=== PATIENT | male | born 1990 | race Caucasian/White ===

== ENCOUNTER 2017-02-23 15:40 | Inpatient (IN) | payer BC ==
[2017-02-23 16:00] VITALS: BP 127/71
[2017-02-23 16:23] LABS: HEMATOCRIT 49.4 % (39.0-49.0); HEMOGLOBIN 16.4 gm/dL (13.2-17.3); MEAN CELL VOLUME 87.7 fl (80-99); MEAN CORPUSCULAR HEMOGLOBIN 29.1 pg (26.0-30.0); MEAN CORPUSCULAR HGB CONC 33.1 pg (28.0-36.0); MEAN PLATELET VOLUME 9.1 fl; PLATELET COUNT 375 Th/cmm (150-400); RED BLOOD COUNT 5.63 Mil/cmm (4.30-5.70); RED CELL DISTRIBUTION WIDTH 12.5 % (11.5-20.0)
[2017-02-23 16:46] LABS: ALB/GLOB RATIO 1.2 (1.0-1.8); ANION GAP 14.2 (7.0-16.0); BILIRUBIN,TOTAL 0.8 mg/dL (0.3-1.0); BUN/CREATININE RATIO 19.4; CALCIUM SERUM 9.8 mg/dL (8.6-10.3); CARBON DIOXIDE 21.7 mEq/L (21.0-31.0); CREATININE - SERUM 1.8 mg/dL (0.7-1.3); POTASSIUM SERUM 4.9 mEq/L (3.5-5.1)
[2017-02-23] MEDS: Sodium Chloride 0.9% 1,000 ML IV SCH (16:50)
[2017-02-23] MEDS ORDERED: VTE Chemical Prophylaxis Screen/Admission MC PRN (17:14)
[2017-02-23 17:16] LABS: BAND NEUTROPHILE 10 % (0-10); BASOPHIL 0 % (0-3); EOSINOPHIL 0 % (0-5); NEUTROPHILS 80 % (40-80); PLATELET ESTIMATE ADEQUATE (NORMAL); PLATELET MORPHOLOGY NORMAL (NORMAL); TOTAL CELLS COUNTED 100
[2017-02-23 17:32] LABS: AMYLASE SERUM 174 U/L (29-103); LIPASE 192 U/L (11-82)
[2017-02-23 19:14] LABS: URINE BILIRUBIN SMALL (NEGATIVE); URINE BLOOD SMALL (NEGATIVE); URINE GLUCOSE (UA) >=1000 mg/dL (NEGATIVE); URINE KETONE 40 mg/dL (NEGATIVE); URINE PH 5.5 (4.6 - 8.0); URINE PROTEIN TRACE mg/dL (NEGATIVE); URINE UROBILINOGEN 0.2 E.U./dL (0.2 - 1.0)
[2017-02-23 19:28] LABS: URINE BACTERIA NONE SEEN /hpf (NONE SEEN); URINE COLOR YELLOW; URINE EPITHELIAL CELLS NONE SEEN /lpf (FEW); URINE WBC NONE SEEN /hpf (0-5)
[2017-02-23] MEDS ORDERED: Potassium Chloride 40 MEQ, Lidocaine 1% 20mL Vial 25 MG in Sodium Chloride 0.9% 250 ML IV PRN (20:15)
[2017-02-24] MEDS: Sodium Chloride 0.9% 1,000 ML IV SCH ×3 (01:00→17:52)
--- NOTE | 2017-02-24 07:59 | Diagnostic Imaging Report ---
CHEST X-RAY: AP view INDICATION: Sepsis COMPARISON: None FINDINGS: There is no focal consolidation or pleural effusions The heart is normal in size. The osseous structures demonstrate no acute abnormalities. IMPRESSION: No acute cardiopulmonary disease.
[2017-02-24 08:06] LABS: MEAN CELL VOLUME 87.1 fl (80-99); MEAN CORPUSCULAR HEMOGLOBIN 29.6 pg (26.0-30.0); MEAN PLATELET VOLUME 8.7 fl; RED BLOOD COUNT 4.74 Mil/cmm (4.30-5.70); RED CELL DISTRIBUTION WIDTH 12.6 % (11.5-20.0)
[2017-02-24 08:27] LABS: ALB/GLOB RATIO 1.2 (1.0-1.8); ALKALINE PHOSPHATASE 106 U/L (34-104); ANION GAP 10.8 (7.0-16.0); BILIRUBIN,TOTAL 0.9 mg/dL (0.3-1.0); BUN - UREA NITROGEN 21 mg/dL (7-25); CALCIUM SERUM 9.1 mg/dL (8.6-10.3); CARBON DIOXIDE 22.2 mEq/L (21.0-31.0); CHLORIDE 109 mEq/L (98-107); GLUCOSE 232 mg/dL (70-105); SGOT 45 U/L (13-39); SGPT/ALT 20 U/L (7-52); SODIUM SERUM 138 mEq/L (136-145)
[2017-02-24 08:46] LABS: HEMATOCRIT 41.3 % (39.0-49.0); PLATELET COUNT 274 Th/cmm (150-400); WHITE BLOOD COUNT 25.4 Th/cmm (4.8-10.8)
[2017-02-24 08:55] LABS: BAND NEUTROPHILE 3 % (0-10); NEUTROPHILS 89 % (40-80); TOTAL CELLS COUNTED 100
--- NOTE | 2017-02-24 10:01 | History and Physical ---
History of Present Illness - HPI Chief Complaint: Nausea and vomit HPI: Patient refer that he started with nausera and vomit many times, reazon why he went to [facility]. In ER was found patient was in DKA and had pancreatitis. Patient was transfered to this hospital to continue treatment. 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 Pertinent Hx GI: Report: No Pertinent Hx Psych: Report: No Pertinent Hx Musculoskeletal: Report: No Pertinent Hx Rheumatologic: Report: No pertinent Hx Infectious Disease: Report: No Pertinent Hx Renal/: Report: No Pertinent Hx Endocrine: Report: Diabetes Dermatology: Report: No Pertinent Hx - Past Surgical History Past Surgical History: No pertinent Hx Family Medical History - Family Member Mother Ethnicity: Hx Family Cancer: No Hx Family Coronary Artery Disease: No Hx Family Congestive Heart Failure: No Hx Family Hypertension: Yes Hx Family Stroke: No Hx Family Diabetes: Yes Father Hx Family Hypertension: Yes Hx Family Diabetes: Yes Social History Smoke: No Alcohol: None Drugs: None Lives: With Family Domestic Violence: Negative - Medications Home Medications: Home Medication Medication Instructions Recorded Type Insulin Human Isophane (NPH) 10 units SUBQ Q12HR 02/23/17 History [NovoLIN N] Insulin Human Regular [NovoLIN R*] 10 units SUBQ TIDWM 02/23/17 History - Allergies Allergies/Adverse Reactions: Allergies Allergy/AdvReac Type Severity Reaction Status Date / Time No Known Allergies Allergy Verified 02/23/17 16:01 Review of Systems - Review of Systems Constitutional: Report: Fever, Weakness Eyes: Report: No Significant ENT: Report: No Significant Respiratory: Report: No Significant Cardiovascular: Report: No Significant Gastrointestinal: Report: Nausea, Vomiting, Abdominal Pain Genitourinary: Report: No Significant Musculoskeletal: Report: No Significant Skin: Report: No Significant Neurological: Report: Weakness Physical Exam - Physical Exam HEENT: Report: Ears Nose Throat within normal limits Neck: Report: Within normal limits Cardiovascular Systems: Report: Regular, Rate and Rhythm Respiratory: Report: Breath Sounds are within normal limits Abdomen: Report: Non-tender to palpation Back: Report: Inspection of back is within normal limits. Extremities: Report: Non-tender to palpation. Skin: Report: Color of skin is within normal limits Neuro/Psych: Report: Mood affect is within normal limits - Lab Results All Lab Results last 24 hours: Laboratory Last Values WBC 25.4 Th/cmm (4.8-10.8) H* D 02/24/17 07:55 RBC 4.74 Mil/cmm (4.30-5.70) 02/24/17 07:55 Hgb 14.0 gm/dL (13.2-17.3) D 02/24/17 07:55 Hct 41.3 % (39.0-49.0) D 02/24/17 07:55 MCV 87.1 fl (80-99) 02/24/17 07:55 MCH 29.6 pg (26.0-30.0) 02/24/17 07:55 MCHC Differential 34.0 pg (28.0-36.0) 02/24/17 07:55 RDW 12.6 % (11.5-20.0) 02/24/17 07:55 Plt Count 274 Th/cmm (150-400) D 02/24/17 07:55 MPV 8.7 fl 02/24/17 07:55 Band Neutrophils % 3 % (0-10) 02/24/17 07:55 Neutrophils (Manual) 89 % (40-80) H 02/24/17 07:55 Lymphocytes 5 % (20-50) L 02/24/17 07:55 Monocytes 3 % (2-10) 02/24/17 07:55 Eosinophils 0 % (0-5) 02/23/17 16:16 Basophils 0 % (0-3) 02/23/17 16:16 Platelet Estimate ADEQUATE (NORMAL) 02/23/17 16:16 Platelet Morphology NORMAL (NORMAL) 02/23/17 16:16 RBC Morph Micro Appear NORMAL (NORMAL) 02/23/17 16:16 Sodium 138 mEq/L (136-145) 02/24/17 07:55 Potassium 4.0 mEq/L (3.5-5.1) 02/24/17 07:55 Chloride 109 mEq/L (98-107) H 02/24/17 07:55 Carbon Dioxide 22.2 mEq/L (21.0-31.0) 02/24/17 07:55 Anion Gap 10.8 (7.0-16.0) 02/24/17 07:55 BUN 21 mg/dL (7-25) 02/24/17 07:55 Creatinine 1.0 mg/dL (0.7-1.3) 02/24/17 07:55 Est GFR ( Amer) > 60.0 ml/min (>90) 02/24/17 07:55 Est GFR (Non-Af Amer) > 60.0 ml/min 02/24/17 07:55 BUN/Creatinine Ratio 21.0 02/24/17 07:55 Glucose 232 mg/dL (70-105) H 02/24/17 07:55 POC Glucose 202 MG/DL (70 - 105) H 02/24/17 07:30 Hemoglobin A1c % 13.5 % (4.0-6.0) H 02/23/17 16:16 Whole Bld Lactic Acid 1.80 mmol/L (0.60-1.99) 02/23/17 16:16 Calcium 9.1 mg/dL (8.6-10.3) 02/24/17 07:55 Total Bilirubin 0.9 mg/dL (0.3-1.0) 02/24/17 07:55 AST 45 U/L (13-39) H 02/24/17 07:55 ALT 20 U/L (7-52) 02/24/17 07:55 Alkaline Phosphatase 106 U/L (34-104) H 02/24/17 07:55 Total Protein 6.1 gm/dL (6.0-8.3) 02/24/17 07:55 Albumin 3.3 gm/dL (4.2-5.5) L 02/24/17 07:55 Globulin 2.8 gm/dL 02/24/17 07:55 Albumin/Globulin Ratio 1.2 (1.0-1.8) 02/24/17 07:55 Amylase 174 U/L (29-103) H 02/23/17 16:16 Lipase 192 U/L (11-82) H 02/23/17 16:16 Urine Source RANDOM 02/23/17 18:45 Urine Color YELLOW 02/23/17 18:45 Urine Clarity CLEAR (CLEAR) 02/23/17 18:45 Urine pH 5.5 (4.6 - 8.0) 02/23/17 18:45 Ur Specific [place] >= 1.030 (1.005-1.030) 02/23/17 18:45 Urine Protein TRACE mg/dL (NEGATIVE) 02/23/17 18:45 Urine Glucose (UA) >=1000 mg/dL (NEGATIVE) H 02/23/17 18:45 Urine Ketones 40 mg/dL (NEGATIVE) H 02/23/17 18:45 Urine Blood SMALL (NEGATIVE) H 02/23/17 18:45 Urine Nitrate NEGATIVE (NEGATIVE) 02/23/17 18:45 Urine Bilirubin SMALL (NEGATIVE) H 02/23/17 18:45 Urine Urobilinogen 0.2 E.U./dL (0.2 - 1.0) 02/23/17 18:45 Ur Leukocyte Esterase NEGATIVE (NEGATIVE) 02/23/17 18:45 Urine RBC 2-5 /hpf (0-5) H 02/23/17 18:45 Urine WBC NONE SEEN /hpf (0-5) 02/23/17 18:45 Ur Epithelial Cells NONE SEEN /lpf (FEW) 02/23/17 18:45 Urine Bacteria NONE SEEN /hpf (NONE SEEN) 02/23/17 18:45 Laboratory Results - last 24 hr 02/23/17 02/23/17 02/23/17 16:10 16:16 16:16 WBC 38.0 H* RBC 5.63 Hgb 16.4 Hct 49.4 H MCV 87.7 MCH 29.1 MCHC Differential 33.1 RDW 12.5 Plt Count 375 MPV 9.1 Band Neutrophils % 10 Neutrophils (Manual) 80 Lymphocytes 4 L Monocytes 6 Eosinophils 0 Basophils 0 Platelet Estimate ADEQUATE Platelet Morphology NORMAL RBC Morph Micro Appear NORMAL Sodium 142 Potassium 4.9 Chloride 111 H Carbon Dioxide 21.7 Anion Gap 14.2 BUN 35 H Creatinine 1.8 H Est GFR ( Amer) 58.5 Est GFR (Non-Af Amer) 48.3 BUN/Creatinine Ratio 19.4 Glucose 330 H POC Glucose 307 H Hemoglobin A1c % Whole Bld Lactic Acid Calcium 9.8 Total Bilirubin 0.8 AST 32 ALT 21 Alkaline Phosphatase 137 H Total Protein 7.2 Albumin 3.9 L Globulin 3.3 Albumin/Globulin Ratio 1.2 Amylase Lipase Urine Source Urine Color Urine Clarity Urine pH Ur Specific [place] Urine Protein Urine Glucose (UA) Urine Ketones Urine Blood Urine Nitrate Urine Bilirubin Urine Urobilinogen Ur Leukocyte Esterase Urine RBC Urine WBC Ur Epithelial Cells Urine Bacteria 02/23/17 02/23/17 02/23/17 16:16 16:16 16:16 WBC RBC Hgb Hct MCV MCH MCHC Differential RDW Plt Count MPV Band Neutrophils % Neutrophils (Manual) Lymphocytes Monocytes Eosinophils Basophils Platelet Estimate Platelet Morphology RBC Morph Micro Appear Sodium Potassium Chloride Carbon Dioxide Anion Gap BUN Creatinine Est GFR ( Amer) Est GFR (Non-Af Amer) BUN/Creatinine Ratio Glucose POC Glucose Hemoglobin A1c % 13.5 H Whole Bld Lactic Acid 1.80 Calcium Total Bilirubin AST ALT Alkaline Phosphatase Total Protein Albumin Globulin Albumin/Globulin Ratio Amylase 174 H Lipase 192 H Urine Source Urine Color Urine Clarity Urine pH Ur Specific [place] Urine Protein Urine Glucose (UA) Urine Ketones Urine Blood Urine Nitrate Urine Bilirubin Urine Urobilinogen Ur Leukocyte Esterase Urine RBC Urine WBC Ur Epithelial Cells Urine Bacteria 02/23/17 02/23/17 02/23/17 17:08 18:19 18:45 WBC RBC Hgb Hct MCV MCH MCHC Differential RDW Plt Count MPV Band Neutrophils % Neutrophils (Manual) Lymphocytes Monocytes Eosinophils Basophils Platelet Estimate Platelet Morphology RBC Morph Micro Appear Sodium Potassium Chloride Carbon Dioxide Anion Gap BUN Creatinine Est GFR ( Amer) Est GFR (Non-Af Amer) BUN/Creatinine Ratio Glucose POC Glucose 317 H 342 H Hemoglobin A1c % Whole Bld Lactic Acid Calcium Total Bilirubin AST ALT Alkaline Phosphatase Total Protein Albumin Globulin Albumin/Globulin Ratio Amylase Lipase Urine Source RANDOM Urine Color YELLOW Urine Clarity CLEAR Urine pH 5.5 Ur Specific [place] >= 1.030 Urine Protein TRACE Urine Glucose (UA) >=1000 H Urine Ketones 40 H Urine Blood SMALL H Urine Nitrate NEGATIVE Urine Bilirubin SMALL H Urine Urobilinogen 0.2 Ur Leukocyte Esterase NEGATIVE Urine RBC 2-5 H Urine WBC NONE SEEN Ur Epithelial Cells NONE SEEN Urine Bacteria NONE SEEN 02/23/17 02/23/17 02/23/17 19:18 20:20 20:32 WBC RBC Hgb Hct MCV MCH MCHC Differential RDW Plt Count MPV Band Neutrophils % Neutrophils (Manual) Lymphocytes Monocytes Eosinophils Basophils Platelet Estimate Platelet Morphology RBC Morph Micro Appear Sodium Potassium 4.1 Chloride Carbon Dioxide Anion Gap BUN Creatinine Est GFR ( Amer) Est GFR (Non-Af Amer) BUN/Creatinine Ratio Glucose POC Glucose 342 H 285 H Hemoglobin A1c % Whole Bld Lactic Acid Calcium Total Bilirubin AST ALT Alkaline Phosphatase Total Protein Albumin Globulin Albumin/Globulin Ratio Amylase Lipase Urine Source Urine Color Urine Clarity Urine pH Ur Specific [place] Urine Protein Urine Glucose (UA) Urine Ketones Urine Blood Urine Nitrate Urine Bilirubin Urine Urobilinogen Ur Leukocyte Esterase Urine RBC Urine WBC Ur Epithelial Cells Urine Bacteria 02/23/17 02/23/17 02/23/17 21:26 22:28 23:35 WBC RBC Hgb Hct MCV MCH MCHC Differential RDW Plt Count MPV Band Neutrophils % Neutrophils (Manual) Lymphocytes Monocytes Eosinophils Basophils Platelet Estimate Platelet Morphology RBC Morph Micro Appear Sodium Potassium Chloride Carbon Dioxide Anion Gap BUN Creatinine Est GFR ( Amer) Est GFR (Non-Af Amer) BUN/Creatinine Ratio Glucose POC Glucose 265 H 260 H 243 H Hemoglobin A1c % Whole Bld Lactic Acid Calcium Total Bilirubin AST ALT Alkaline Phosphatase Total Protein Albumin Globulin Albumin/Globulin Ratio Amylase Lipase Urine Source Urine Color Urine Clarity Urine pH Ur Specific [place] Urine Protein Urine Glucose (UA) Urine Ketones Urine Blood Urine Nitrate Urine Bilirubin Urine Urobilinogen Ur Leukocyte Esterase Urine RBC Urine WBC Ur Epithelial Cells Urine Bacteria 02/24/17 02/24/17 02/24/17 00:20 00:25 01:29 WBC RBC Hgb Hct MCV MCH MCHC Differential RDW Plt Count MPV Band Neutrophils % Neutrophils (Manual) Lymphocytes Monocytes Eosinophils Basophils Platelet Estimate Platelet Morphology RBC Morph Micro Appear Sodium Potassium 4.1 Chloride Carbon Dioxide Anion Gap BUN Creatinine Est GFR ( Amer) Est GFR (Non-Af Amer) BUN/Creatinine Ratio Glucose POC Glucose 243 H 235 H Hemoglobin A1c % Whole Bld Lactic Acid Calcium Total Bilirubin AST ALT Alkaline Phosphatase Total Protein Albumin Globulin Albumin/Globulin Ratio Amylase Lipase Urine Source Urine Color Urine Clarity Urine pH Ur Specific [place] Urine Protein Urine Glucose (UA) Urine Ketones Urine Blood Urine Nitrate Urine Bilirubin Urine Urobilinogen Ur Leukocyte Esterase Urine RBC Urine WBC Ur Epithelial Cells Urine Bacteria 02/24/17 02/24/17 02/24/17 02:30 03:32 04:05 WBC RBC Hgb Hct MCV MCH MCHC Differential RDW Plt Count MPV Band Neutrophils % Neutrophils (Manual) Lymphocytes Monocytes Eosinophils Basophils Platelet Estimate Platelet Morphology RBC Morph Micro Appear Sodium Potassium 4.1 Chloride Carbon Dioxide Anion Gap BUN Creatinine Est GFR ( Amer) Est GFR (Non-Af Amer) BUN/Creatinine Ratio Glucose POC Glucose 232 H 208 H Hemoglobin A1c % Whole Bld Lactic Acid Calcium Total Bilirubin AST ALT Alkaline Phosphatase Total Protein Albumin Globulin Albumin/Globulin Ratio Amylase Lipase Urine Source Urine Color Urine Clarity Urine pH Ur Specific [place] Urine Protein Urine Glucose (UA) Urine Ketones Urine Blood Urine Nitrate Urine Bilirubin Urine Urobilinogen Ur Leukocyte Esterase Urine RBC Urine WBC Ur Epithelial Cells Urine Bacteria 02/24/17 02/24/17 02/24/17 04:16 05:28 06:27 WBC RBC Hgb Hct MCV MCH MCHC Differential RDW Plt Count MPV Band Neutrophils % Neutrophils (Manual) Lymphocytes Monocytes Eosinophils Basophils Platelet Estimate Platelet Morphology RBC Morph Micro Appear Sodium Potassium Chloride Carbon Dioxide Anion Gap BUN Creatinine Est GFR ( Amer) Est GFR (Non-Af Amer) BUN/Creatinine Ratio Glucose POC Glucose 227 H 224 H 210 H Hemoglobin A1c % Whole Bld Lactic Acid Calcium Total Bilirubin AST ALT Alkaline Phosphatase Total Protein Albumin Globulin Albumin/Globulin Ratio Amylase Lipase Urine Source Urine Color Urine Clarity Urine pH Ur Specific [place] Urine Protein Urine Glucose (UA) Urine Ketones Urine Blood Urine Nitrate Urine Bilirubin Urine Urobilinogen Ur Leukocyte Esterase Urine RBC Urine WBC Ur Epithelial Cells Urine Bacteria 02/24/17 02/24/17 02/24/17 07:30 07:55 07:55 WBC 25.4 H* D RBC 4.74 Hgb 14.0 D Hct 41.3 D MCV 87.1 MCH 29.6 MCHC Differential 34.0 RDW 12.6 Plt Count 274 D MPV 8.7 Band Neutrophils % 3 Neutrophils (Manual) 89 H Lymphocytes 5 L Monocytes 3 Eosinophils Basophils Platelet Estimate Platelet Morphology RBC Morph Micro Appear Sodium 138 Potassium 4.0 Chloride 109 H Carbon Dioxide 22.2 Anion Gap 10.8 BUN 21 Creatinine 1.0 Est GFR ( Amer) > 60.0 Est GFR (Non-Af Amer) > 60.0 BUN/Creatinine Ratio 21.0 Glucose 232 H POC Glucose 202 H Hemoglobin A1c % Whole Bld Lactic Acid Calcium 9.1 Total Bilirubin 0.9 AST 45 H ALT 20 Alkaline Phosphatase 106 H Total Protein 6.1 Albumin 3.3 L Globulin 2.8 Albumin/Globulin Ratio 1.2 Amylase Lipase Urine Source Urine Color Urine Clarity Urine pH Ur Specific [place] Urine Protein Urine Glucose (UA) Urine Ketones Urine Blood Urine Nitrate Urine Bilirubin Urine Urobilinogen Ur Leukocyte Esterase Urine RBC Urine WBC Ur Epithelial Cells Urine Bacteria - Assessment Assessment: Patient is awake, calm in no acute distress. WBC improved but continue critical , anion gap is closed, K normal, amilase and lipase high. - Plan Plan: Insulin drip DC, and continue with Sliding scale, NPO, on sozyn, consult with GI requested. Will continue to monitor
[2017-02-24] MEDS: INSULIN ASPART SLIDING SCALE 100 UNITS/ML UNIT SUBQ SCH ×2 (12:04→17:53)
--- NOTE | 2017-02-24 23:44 | Consultation ---
DATE OF CONSULTATION: 02/24/2017 REASON FOR CONSULTATION: Nausea, vomiting, and pancreatitis. HISTORY OF PRESENT ILLNESS: This consult was obtained through the courtesy of Dr. Parr for this 26-year-old diagnosed with diabetes 4 years ago. At that time, he had also another attack of DKA. The patient has been following by primary care and by the advanced nursing professor, but apparently, his diabetes was not well controlled. The patient sensed another attack coming. He went to [place] and was found to have abnormal lipase and CAT scan suggestive of pancreatitis. The patient was transferred here. GI consult was called in for further evaluation. The patient stated that over the long weekend, he was in [place], then off to [place], then here and he was drinking lots of Monster drinks, which does not have much of calories, but has lots of caffeine and apparently the patient had enough drinking and enough liquid as much, so he started sensing an attack of DKA coming, so he presented to [facility] as stated above. At this time, the patient denies any more nausea or vomiting. He denies any abdominal pain. He has not had pain medicine since last night. PAST MEDICAL HISTORY: Diabetes. PAST SURGICAL HISTORY: Negative. SOCIAL HISTORY: Denies alcohol, drugs, or smoking. FAMILY HISTORY: Noncontributory. ALLERGIES: No known drug allergy. MEDICATIONS: He has been on insulin before. REVIEW OF SYSTEMS: No weight loss. No diarrhea or constipation. At this time, no more nausea, vomiting and no more abdominal pain and no bleeding. PHYSICAL EXAMINATION: GENERAL: The patient is awake, oriented to self, place, and time, in no acute distress. VITAL SIGNS: Blood pressure is 118/60, heart rate 84, respiratory rate 17, and temperature is 99.1. HEAD AND NECK: Pupils are reactive to light and accommodation. Extraocular muscles are intact. Sclerae are anicteric. Conjunctivae not pale. Oral cavity, no lesion. NECK: Supple. No jugular venous distention. No carotid bruit or lymph node. CHEST: Good respiratory movements. LUNGS: Clear to auscultation. CARDIOVASCULAR: Regular rate and rhythm. No murmur or gallop. ABDOMEN: Soft, nontender, and nondistended. Bowel sounds are present. EXTREMITIES: Lower extremities, no edema. Good peripheral pulses. CENTRAL NERVOUS SYSTEM: Grossly nonfocal. LABORATORY DATA: At [facility], lipase was more than 400, which apparently the cut off. Here lipase is 192 with the normally up to 82. The patient presented with white count of 38,000 and now down to 25.4, rest of CBC is unremarkable. Chemistry did not show initially abnormal liver enzymes. Now AST is 45. Alkaline phosphatase is 106. CAT scan at [facility] showed some stranding on the pancreas, some fluids suggestive of acute pancreatitis. IMPRESSION: This is a 26-year-old with diabetic ketoacidosis and now possible acute pancreatitis, most probably is related to diabetic ketoacidosis. The patient denies any alcohol or drug abuse. His CAT scan did not show any stones and at this time, there is no reason to suspect it. We will look if [facility] also did an ultrasound which I doubt. We may get one here, but on the same token, that seems all explainable, so at this time given that the patient denies any abdominal pain, any nausea or vomiting and abdominal exam is benign and lipase is dropping, we will start him on clear liquid diet and recheck labs in the morning. 2. Nausea and vomiting, secondary to diabetic ketoacidosis and the pancreatitis seems to be better, so we will continue current management. 3. Leukocytosis, most probably from diabetic ketoacidosis. Thank you, Dr. Parr for allowing me to participate in the care of the patient. If you have any further questions, please let me know. JOB# [id number]
[2017-02-25] MEDS: INSULIN ASPART SLIDING SCALE 100 UNITS/ML UNIT SUBQ SCH ×4 (00:05→17:27)
[2017-02-25] MEDS: Sodium Chloride 0.9% 1,000 ML IV SCH ×2 (02:55→13:22)
[2017-02-25 05:33] LABS: HEMATOCRIT 34.9 % (39.0-49.0); MEAN CELL VOLUME 87.5 fl (80-99); MEAN CORPUSCULAR HEMOGLOBIN 29.3 pg (26.0-30.0); MEAN CORPUSCULAR HGB CONC 33.5 pg (28.0-36.0); MEAN PLATELET VOLUME 8.8 fl; NEUTROPHILE ABSOLUTE 9.4 Th/cmm (1.8-8.0); PLATELET COUNT 213 Th/cmm (150-400); RED BLOOD COUNT 3.98 Mil/cmm (4.30-5.70); RED CELL DISTRIBUTION WIDTH 12.3 % (11.5-20.0)
[2017-02-25 05:38] LABS: WHITE BLOOD COUNT 12.1 Th/cmm (4.8-10.8)
[2017-02-25 05:51] LABS: HEMOGLOBIN 11.8 gm/dL (13.2-17.3)
[2017-02-25 05:58] LABS: ALB/GLOB RATIO 1.2 (1.0-1.8); ALKALINE PHOSPHATASE 95 U/L (34-104); AMYLASE SERUM 91 U/L (29-103); ANION GAP 15.1 (7.0-16.0); BILIRUBIN,TOTAL 1.6 mg/dL (0.3-1.0); BUN - UREA NITROGEN 14 mg/dL (7-25); BUN/CREATININE RATIO 17.5; CALCIUM SERUM 8.8 mg/dL (8.6-10.3); CARBON DIOXIDE 20.7 mEq/L (21.0-31.0); CHLORIDE 103 mEq/L (98-107); CREATININE - SERUM 0.8 mg/dL (0.7-1.3); GLUCOSE 236 mg/dL (70-105); LIPASE 56 U/L (11-82); POTASSIUM SERUM 3.8 mEq/L (3.5-5.1); SGOT 37 U/L (13-39); SGPT/ALT 23 U/L (7-52); SODIUM SERUM 135 mEq/L (136-145)
[2017-02-25 06:29] LABS: BAND NEUTROPHILE 1 % (0-10); NEUTROPHILS 77 % (40-80); TOTAL CELLS COUNTED 100
[2017-02-25 06:30] LABS: % BASOPHILS 0.2 % (0.0-2.0); % EOSINOPHILS 0.2 % (0.0-5.0); % LYMPHOCYTES 13.1 % (20.0-50.0); % MONOCYTES 9.4 % (2.0-10.0); % NEUTROPHILS 77.1 % (40.0-80.0)
--- NOTE | 2017-02-25 09:29 | General Progress Note ---
Subjective - Review of Systems Service Date: 02/25/17 Subjective: I am OK Objective - Results Result Diagrams: 02/25/17 04:34 02/25/17 04:34 Recent Labs: Laboratory Last Values WBC 12.1 Th/cmm (4.8-10.8) H D 02/25/17 04:34 RBC 3.98 Mil/cmm (4.30-5.70) L 02/25/17 04:34 Hgb 11.8 gm/dL (13.2-17.3) L D 02/25/17 04:34 Hct 34.9 % (39.0-49.0) L D 02/25/17 04:34 MCV 87.5 fl (80-99) 02/25/17 04:34 MCH 29.3 pg (26.0-30.0) 02/25/17 04:34 MCHC Differential 33.5 pg (28.0-36.0) 02/25/17 04:34 RDW 12.3 % (11.5-20.0) 02/25/17 04:34 Plt Count 213 Th/cmm (150-400) D 02/25/17 04:34 MPV 8.8 fl 02/25/17 04:34 Neutrophils % 77.1 % (40.0-80.0) 02/25/17 04:34 Band Neutrophils % 1 % (0-10) 02/25/17 04:34 Lymphocytes % 13.1 % (20.0-50.0) L 02/25/17 04:34 Monocytes % 9.4 % (2.0-10.0) 02/25/17 04:34 Eosinophils % 0.2 % (0.0-5.0) 02/25/17 04:34 Basophils % 0.2 % (0.0-2.0) 02/25/17 04:34 Neutrophils (Manual) 77 % (40-80) 02/25/17 04:34 Lymphocytes 13 % (20-50) L 02/25/17 04:34 Monocytes 9 % (2-10) 02/25/17 04:34 Eosinophils 0 % (0-5) 02/23/17 16:16 Basophils 0 % (0-3) 02/23/17 16:16 Platelet Estimate ADEQUATE (NORMAL) 02/23/17 16:16 Platelet Morphology NORMAL (NORMAL) 02/23/17 16:16 RBC Morph Micro Appear NORMAL (NORMAL) 02/23/17 16:16 Sodium 135 mEq/L (136-145) L 02/25/17 04:34 Potassium 3.8 mEq/L (3.5-5.1) 02/25/17 04:34 Chloride 103 mEq/L (98-107) 02/25/17 04:34 Carbon Dioxide 20.7 mEq/L (21.0-31.0) L 02/25/17 04:34 Anion Gap 15.1 (7.0-16.0) 02/25/17 04:34 BUN 14 mg/dL (7-25) 02/25/17 04:34 Creatinine 0.8 mg/dL (0.7-1.3) 02/25/17 04:34 Est GFR ( Amer) > 60.0 ml/min (>90) 02/25/17 04:34 Est GFR (Non-Af Amer) > 60.0 ml/min 02/25/17 04:34 BUN/Creatinine Ratio 17.5 02/25/17 04:34 Glucose 236 mg/dL (70-105) H 02/25/17 04:34 POC Glucose 244 MG/DL (70 - 105) H 02/25/17 06:11 Hemoglobin A1c % 13.5 % (4.0-6.0) H 02/23/17 16:16 Whole Bld Lactic Acid 1.80 mmol/L (0.60-1.99) 02/23/17 16:16 Calcium 8.8 mg/dL (8.6-10.3) 02/25/17 04:34 Total Bilirubin 1.6 mg/dL (0.3-1.0) H 02/25/17 04:34 AST 37 U/L (13-39) 02/25/17 04:34 ALT 23 U/L (7-52) 02/25/17 04:34 Alkaline Phosphatase 95 U/L (34-104) 02/25/17 04:34 Total Protein 5.7 gm/dL (6.0-8.3) L 02/25/17 04:34 Albumin 3.1 gm/dL (4.2-5.5) L 02/25/17 04:34 Globulin 2.6 gm/dL 02/25/17 04:34 Albumin/Globulin Ratio 1.2 (1.0-1.8) 02/25/17 04:34 Amylase 91 U/L (29-103) 02/25/17 04:34 Lipase 56 U/L (11-82) 02/25/17 04:34 Urine Source RANDOM 02/23/17 18:45 Urine Color YELLOW 02/23/17 18:45 Urine Clarity CLEAR (CLEAR) 02/23/17 18:45 Urine pH 5.5 (4.6 - 8.0) 02/23/17 18:45 Ur Specific [place] >= 1.030 (1.005-1.030) 02/23/17 18:45 Urine Protein TRACE mg/dL (NEGATIVE) 02/23/17 18:45 Urine Glucose (UA) >=1000 mg/dL (NEGATIVE) H 02/23/17 18:45 Urine Ketones 40 mg/dL (NEGATIVE) H 02/23/17 18:45 Urine Blood SMALL (NEGATIVE) H 02/23/17 18:45 Urine Nitrate NEGATIVE (NEGATIVE) 02/23/17 18:45 Urine Bilirubin SMALL (NEGATIVE) H 02/23/17 18:45 Urine Urobilinogen 0.2 E.U./dL (0.2 - 1.0) 02/23/17 18:45 Ur Leukocyte Esterase NEGATIVE (NEGATIVE) 02/23/17 18:45 Urine RBC 2-5 /hpf (0-5) H 02/23/17 18:45 Urine WBC NONE SEEN /hpf (0-5) 02/23/17 18:45 Ur Epithelial Cells NONE SEEN /lpf (FEW) 02/23/17 18:45 Urine Bacteria NONE SEEN /hpf (NONE SEEN) 02/23/17 18:45 - Physical Exam Vitals and I&O: Vital Signs Temp 97.7 F 02/25/17 04:00 Pulse 70 02/25/17 04:00 Resp 18 02/25/17 04:00 BP 130/58 02/25/17 04:00 Pulse Ox 97 02/25/17 04:00 Intake & Output 02/24/17 02/25/17 02/25/17 18:59 06:59 18:59 Intake Total 3057.878 1500 Output Total 1000 Balance 3057.878 500 Weight (lbs) 82.554 kg 79.878 kg Intake: Intake, IV Amount 2057.878 1100 Insulin Human Regular 100 7.878 units In Sodium Chloride 0.9% 100 ml @ 6 UNITS/HR 6.06 mls/hr IV TITR [facility] Rx#:[id number] Piperacillin Sodium/ 50 100 Tazobact 3.375 gm In Sodium Chloride 0.9% 50 ml @ 100 mls/hr IV Q8H [facility] Rx#:[id number] Sodium Chloride 0.9% 1, 2000 1000 000 ml @ 125 mls/hr IV . Q8H [facility] Rx#:[id number] Oral 1000 400 Output: Urine 1000 Other: # Voids 4 3 # Bowel Movements 1 2 Stool Characteristics Formed Soft Brown Active Medications: Current Medications Heparin Sodium (Porcine) (Heparin) 5,000 units SUBQ Q12HR [facility] Stop: 04/24/17 20:59 Last Admin: 02/24/17 21:40 Dose: 5,000 units Sodium Chloride (Nacl 0.9%) 1,000 mls @ 125 mls/hr IV .Q8H [facility] Stop: 04/24/17 16:04 Last Admin: 02/25/17 02:55 Dose: 125 mls/hr Piperacillin Sod/Tazobactam (Sod 3.375 gm/ Sodium Chloride) 50 mls @ 100 mls/ hr IV Q8H [facility] Stop: 04/24/17 17:59 Last Infusion: 02/25/17 02:30 Dose: Infused Potassium Chloride 40 meq/Lidocaine HCl 25 mg/ Sodium Chloride 272.5 mls @ 68 mls/hr IV DAILY PRN PRN Reason: K+ LEVEL LESS THAN 4 Stop: 04/24/17 20:14 Insulin Aspart (Novolog Insulin Sliding Scale) 0 units SUBQ Q6HR [facility] PRN Reason: Protocol Stop: 04/25/17 08:59 Last Admin: 02/25/17 06:19 Dose: 6 units Miscellaneous (Vte Chemical Prophylaxis Screen/ Admission) 1 [facility] PRN PRN PRN Reason: PROTOCOL Stop: 04/24/17 17:13 Pantoprazole Sodium (Protonix) 20 mg IVP DAILY [facility] Stop: 04/24/17 20:44 Last Admin: 02/24/17 09:21 Dose: 20 mg General: Alert, Oriented x3, No acute distress HEENT: Atraumatic, EOMI Cardiovascular: Regular rate Lungs: Clear to auscultation Abdomen: Bowel sounds, Soft Extremities: Other (No edema) Neurological: Normal gait Skin: Other (Warm and dry) Psych/Mental Status: Mental status NL Assessment/Plan - Assessment Assessment: Patient is awake, calm in no acute distress. WBC improving close to normal. anion gap is closed, K normal, amilase and lipase normal. - Plan Plan: Insulin drip DC, and continue with Sliding scale, Regular diet, on sozyn, consult with GI requested. Will continue to monitor Nutritional Asmnt/Malnutr-PDOC - Dietary Evaluation Malnutrition Findings (Please click <Entered> for more info): Nutritional Asmnt/Malnutrition Start: 02/24/17 14: 30 Text: Status: Complete Freq: Document 02/24/17 14:30 GSUN (Rec: 02/24/17 14:48 [email or web address]) Nutritional Asmnt/Malnutrition Patient General Information Nutritional Screening High Risk Screening Diagnosis Chief complaint: nausea and vomit. Reason for visit: DKA sepsis Pertinent Medical Hx/Surgical Hx DM Subjective Information 26 year old male from home. RD consult for BG >300. Spoke to pt and family at bedside. RD provided extensive review with printed materials on DM nutrition education as pt has taken a class on this topid 4 years ago when first hospitalized due to DM. Pt has prior knowledge and was receptive of infromation. Pt actively lost 40lb in 5months by goign to the gym 4x/week, discussed health weight loss goals. Pt ate 100% dinner last night, unable to tolerate much of breakfast today. GI MD Olivera ordered clear liquid diet. Current Diet Order/ Nutrition Support Clear liquid suger free Pertinent Medications Novolog, Protonix Pertinent Labs 02/23: A1c 13.5H 02/24: glucose 232H POC glucose 202-342 since adm Nutritional Hx/Data Height 1.6 m Height (Calculated Centimeters) 160.0 Current Weight (lbs) 82.554 kg Weight (Calculated Kilograms) 82.6 Weight (Calculated Grams) 78543.8 Mcdavid Body Weight 124 Recent Weight Change Yes Weight Status Obese GI Symptoms Cultural/Ethnic/Zoroastrianism Belief Pt stated he eats relatively healthy at home. Pt normally eats what is cooked by pt's mom and in small portions in light to lose weight. Pt does not follow a CCHO diet, but is mindful. Over recent day weekend, pt suspected unhealthy eating patterns while traveling and excessive energy Monster drink caused this hospitalization. Usual diet at home Refer to above. Skin Integrity/Comment: John Carrion. Skin intact. Estimated Nutritional Goals BEE in Kcals: Adj wt of IBW Calories/Kcals/Kg AdjBW 138.5lb/63kg Kcals Calculated 1890-2205kcal (30-35kcal/kg) Protein: Adj wt of IBW Protein Calculated 50-82g (0.8-1.3g/kg) Fluid: ml 1890-2205ml (1ml/kcal) Nutritional Problem 2. Problem Problem Altered GI function related to Etiology unknown etiology aeb Signs/Symptoms: seen by GI MD, unable to tolerate breakfast, currently on clear liquids 1. Problem Problem Altered nutrition related laboratory values related to Etiology DM aeb Signs/Symptoms: glucose 330 on adm, A1c 13.5 Intervention/Recommendation Comments 1. Currently on clear liquid diet. Recommend diet advancement to [address] when appropriate. 2. Provided extensive nutrition edu and printed material on DM. Pt has prior knowledge as he has taken a class related to this topic 4 years ago when first hospitalized due to DM. Pt was receptive to information. All questions answered at this time. 3. Discussed healthy weight loss goals, pt has recent 40lb weight loss over 5 months by going to the gym 4x/week. Expected Outcomes/Goals Expected Outcomes/Goals 1. PO intake to resume and meet at least 75% of estimated nutritional needs.
[2017-02-26] MEDS: Sodium Chloride 0.9% 1,000 ML IV SCH (02:57)
--- NOTE | 2017-02-26 03:51 | Admit Criteria Form ---
Admit Criteria Forms - Admit Criteria Diagnosis: GENERAL ADMISSION CRITERIA (Place 'X' for any and all applicable criteria): Admission is indicated for ANY ONE of the following: [ ]I. Hemodynamic instability as indicated by ANY ONE of the following(1)(2) (3)(4)(5): [ ]a) Vital sign abnormality not readily corrected by appropriate treatment within 12 to 24 hours indicated by ANY ONE of the following: [ ]i) Hypotension [ ]ii) Symptomatic Tachycardia unresponsive to treatment (eg , analgesia, fluids, sedation as indicated) [ ]iii) Orthostatic vital sign changes unresponsive to treatment (eg, fluids) [ ]b) Vital sign abnormality that is severe indicated by ANY ONE of the following: [ ]i) Inadequate perfusion indicated by ANY ONE of the following: [ ]1) Lactic acidosis (greater than 2 mmol/L) [ ]2) New abnormal capillary refill (greater than 3 seconds) [ ]3) Other metabolic acidosis (arterial pH less than 7.35) not otherwise explained [ ]4) Reduced urine output [ ]5) Altered mental status [ ]6) Myocardial Ischemia [ ]v) Mean arterial pressure[A] less than 60 mm Hg [ ]vi) Mean arterial pressure[A] less than 70 mm Hg after 30 minutes of appropriate treatment (eg, fluid resuscitation) [ ]vii) IV inotropic or vasopressor medication required to maintain adequate blood pressure or perfusion [ ]viii) Sustained heart rate greater than 120 beats per minute in adult or child 6 years or older[B]] [ ]II. Hypertension requiring inpatient treatment as indicated by ANY ONE of the following(6)(7)(8): [ ]a) SBP greater than 220 mm Hg or DBP greater than 120 mm Hg despite treatment [ ]b) SBP greater than 140 mm Hg or DBP greater than 100 mm Hg with evidence of acute end organ damage as indicated by ANY ONE of the following: [ ]i) Encephalopathy [ ]ii) Acute renal failure as indicated by new onset of ANY ONE of the following(9)(10)(11)(12)(13): [ ]1) A 3-fold rise in serum creatinine from baseline [ ]2) Serum creatinine greater than 4 mg/dL ( 354 micromoles/L) with acute rise greater than 0.5 mg/dL (44.2 micromoles/L) [ ]3) Reduction of more than 75% in estimated glomerular filtration rate from baseline [ ]4) Estimated glomerular filtration rate less than 35 mL/min/1.73m2 (0.59 mL/sec/1.73m2) in child up to 18 years of age [ ]5) Cessation of urine output indicated by ALL of the following: [ ]A. Adequate volume status [ ]B. Inadequate urine output as indicated by ANY ONE of the following: [ ]a. Urine output less than 0.3 mL/kg/hr for 24 hours [ ]b. Anuria (urine output less than 0.1 mL/kg/hr) for 12 hours [ ]iii) Aortic dissection [ ]iv) Myocardial ischemia [ ]v) Left ventricular heart failure [ ]vi) Retinal hemorrhage [ ]vii) Other significant finding [ ]c) Hypertension in child requiring inpatient treatment as indicated by ALL of the following(14)(15)(16): [ ]i) Outpatient treatment not effective, not available, or not appropriate [ ]ii) SBP or DBP greater than 95th percentile for age [ ]iii) Evidence of acute end organ damage as indicated by ANY ONE of the following: [ ]1) Altered mental status [ ]2) Acute renal failure as indicated by new onset of ANY ONE of the following(9)(10)(11)(12)(13): [ ]A. A 3-fold rise in serum creatinine from baseline [ ]B. Serum creatinine greater than 4 mg/dL (354 micromoles/L) with acute rise greater than 0.5 mg/dL (44.2 micromoles/L) [ ]C. Reduction of more than 75% in estimated glomerular filtration rate from baseline [ ]D. Estimated glomerular filtration rate less than 35 mL/min/1.73m2 (0.59 mL/sec/1.73m2)in child up to 18 years of age [ ]E. Cessation of urine output indicated by ALL of the following: [ ]a. Adequate volume status [ ]b. Inadequate urine output as indicated by ANY ONE of the following: [ ]1) Urine output less than 0.3 mL/kg/hr for 24 hours [ ]2) Anuria (urine output less than 0.1 mL/kg/hr) for 12 hours [ ]3) Severe headache [ ]4) Visual disturbance [ ]5) Retinal hemorrhage [ ]6) Other significant finding [ ]III. Acute cardiac or peripheral ischemia as indicated by ANY ONE of the following: [ ]a) Acute coronary syndrome(17)(18) [ ]b) Acute peripheral ischemia (eg, pulseless, cool, mottled, or cyanotic extremity)(19) [ ]IV. Cardiac arrhythmias or findings of immediate concern indicated by ANY ONE of the following(20)(21): [ ]a) Heart rhythms that are inherently dangerous or unstable indicated by ANY ONE of the following(22)(23)(24): [ ]i) Resuscitated ventricular fibrillation or cardiac arrest [ ]ii) Ventricular escape rhythm [ ]iii) Sustained ventricular tachycardia (30 seconds or more of ventricular rhythm at greater than 100 beats per minute) [ ]iv) Nonsustained ventricular tachycardia and ANY ONE of the following: [ ]1) Suspected cardiac ischemia as cause or consequence of ventricular tachycardia [ ]2) In setting of acute myocarditis [ ]b) Unstable cardiac conduction defects indicated by ANY ONE of the following(24)(25)(26): [ ]i) Type II second-degree atrioventricular block [ ]ii) Third-degree atrioventricular block [ ]iii) New-onset left bundle branch block with suspected myocardial ischemia [ ]c) Any heart rhythm and ANY ONE of the following(22)(23)(27)(28)( 29): [ ] i) Continuous long-term ECG monitoring needed (eg, initiation of drug requiring monitoring for more than 24 hours) [ ] ii) Patient has automatic implanted cardioverter defibrillator that is repeatedly firing, malfunctioning, or in need of immediate adjustment of settings beyond the scope of ambulatory or observation care. [ ]d) Heart rhythms of concern due to ANY ONE of the following: [ ]i) Hypotension [ ]ii) Respiratory distress [ ]iii) Association with other significant symptoms (eg, bradycardia with syncope or ongoing dizziness, supraventricular tachycardia with chest pain) (27)(28) (30) [ ] V. Severe heart failure as indicated by ANY ONE of the following ( 31)(32): [ ]a) Respiratory distress [ ]b) Hypotension [ ]c) Anasarca (refractory to outpatient therapy) [ ]d) Cardiac arrhythmias of immediate concern [ ]e) Myocardial ischemia [ ]. Respiratory abnormalities, including ANY ONE of the following(33)(34) (35)(36): [ ]a) Respiratory rate greater than 30 breaths per minute unresponsive to treatment [A] [ ]b) New saturation of arterial oxygen less than 90% [ ]c) New partial pressure of carbon dioxide greater than 44 mm Hg ( 5.9 kPa) [ ]d) Supplemental oxygen or respiratory treatments needed that are new or not performable at other levels of care [ ]e) New-onset cyanosis [ ]f) Inability to protect airway [ ]g) Chronic lung disease with severe deterioration (not responsive to emergency and observation care treatment as appropriate) as indicated by ANY ONE of the following(34)(36 ): [ ]i) SaO2 5% below baseline in patient with chronic hypoxemia [ ]ii) New requirement for supplemental oxygen to keep SaO2 at baseline or acceptable level [ ]iii) Required supplemental oxygen performable only in acute inpatient setting [ ]iv) Severe airflow or ventilation abnormalities [ ]v) Previously mobile patient unable to walk between rooms [ ]vi Inability to eat or sleep due to dyspnea [ ]vii) Rapid rate of exacerbation onset [ ]viii) Altered mental status ]VII. Severe airflow or ventilation abnormalities (not responsive to emergency and observation care treatment as appropriate) as indicated by ANY ONE of the following(33)(34)(35)(37): [ ]a) PCO2 greater than 42 mm Hg (5.6 kPa) and pH less than 7.35 (new ) [ ]b) Documented PCO2 increased more than 5 mm Hg (0.7 kPa) from disease baseline [ ]c) Airflow measurements [B] less than 60% of previous best or predicted (eg, peak expiratory flow rate less than 300 L/minute) despite intensive emergent treatment [C] [ ]d) Required respiratory treatments that are performable only in acute inpatient setting [ ]VIII. Impending or actual respiratory arrest ( Also use Respiratory Failure GRG for severe respiratory disease and long-term mechanical ventilation patients) [ ]IX. Neurologic abnormalities, including ANY ONE of the following: [ ]a) New findings that suggest ANY ONE of the following: [ ]i) REGISTERED NURSE FLOAT POOL infection(38) [ ]ii) Cerebral bleeding, ischemia, or vasospasm(39)(40) [ ]iii) Increased intracranial pressure, hydrocephalus, or cerebral edema(41)(42)(43) [ ]iv) Spinal cord injury(44) [ ]b) Uncontrolled seizures(45) [ ]c) New-onset coma (eg, [place] coma scale score less than 9) or unexplained abnormal mental status (eg, [place] coma scale score less than 14) [D](41)(46)(47) [ ]X. New-onset severe neurologic findings requiring inpatient care; examples include(42)(48)(49): [ ]a) Papilledema [ ]b) Cerebral edema [ ]c) Mass effect on CT scan [ ]XI. Suspected acute intra-abdominal process with peritoneal signs, abdominal mass, or similar findings (50)(51)(52) [ X]XII. Severe physiologic disorder remaining after emergency or observation level care (as appropriate) as indicated by ANY ONE of the following (53): [ ]a) Significant dehydration [X ]b) Diabetic ketoacidosis [ ]c) Hyperglycemic hyperosmolar state (eg, osmolality greater than 320 mOsm/kg (mmol/kg) [ ]d) Hypoglycemia [ ]e) Other (new) acid-base disorder with pH less than 7.35 or greater than 7.5(54) [ ]f) Thyroid storm (55) [ ]g) Myxedema coma (55) [ ]XIII. Abdominal abnormalities with ANY ONE of the following(56)(57): [ ]a) Absent bowel sounds with complete ileus [ ]b) Signs of intestinal obstruction or peritonitis [E] [ ]c) Nausea and vomiting that cannot be controlled with outpatient or observation care [ ]XIV. Acute renal failure as indicated by new onset of ANY ONE of the following(9)(10)(11)(12)(13): [ ]a) A 3-fold rise in serum creatinine from baseline [ ]b) Serum creatinine greater than 4 mg/dL (354 micromoles/L) with acute rise greater than 0.5 mg/dL (44.2 micromoles/L) [ ]c) Reduction of more than 75% in estimated glomerular filtration rate from baseline [ ]d) Estimated glomerular filtration rate less than 35 mL/min/ 1.73m2 (0.59 mL/sec/1.73m2) in child up to 18 years of age [ ]e) Cessation of urine output indicated by ALL of the following: [ ]i) Adequate volume status [ ]ii) Inadequate urine output as indicated by ANY ONE of the following: [ ]1) Urine output less than 0.3 mL/kg/hr for 24 hours [ ]2) Anuria (urine output less than 0.1 mL/kg/hr) for 12 hours [ ]XV. Significant uremic complications as indicated by ANY ONE of the following(58)(59)(60): [ ]a) Outpatient therapy is ineffective or not feasible for ANY ONE of the following: [ ]i) Severe heart failure [ ]ii) Severehypertension [ ]iii) Pleural effusion [ ]iv) Pericarditis or pericardial effusion [ ]b) Cardiac arrhythmias of immediate concern [ ]c) Intractable nausea or vomiting [ ]d) Recurrent seizures [ ]e) Encephalopathy [ ]f) Bleeding abnormalities (eg, platelet dysfunction) with active (eg, gastrointestinal) bleeding [ ]g) Dialysis indicated before long-term access or ambulatory arrangements can be made [ ]h) Significant metabolic or electrolyte abnormalities (eg, severe acidosis or hyperkalemia) [ ]XVI. High fever or other high-risk infection situation as indicated by ANY ONE of the following(61)(62)(63)(64): [ ]a) Outpatient and observation care antimicrobial treatment unavailable, not effective, or not appropriate [ ]b) Documented bacteremia [ ]c) Temperature greater than 40.5 degrees C (104.9 degrees F) ( oral) [ ]d) Temperature greater than 39.5 degrees C (103.1 degrees F) ( oral) or less than 36 degrees C (96.8 degrees F) (rectal) that does not respond to e treatment and observation care [ ] XVII. Temperature less than 95 degrees F (35 degrees C)(rectal)(65) [ ] XVIII. Severe nutritional abnormalities as indicated by ALL of the following (66)(67): [ ]a) Inability to tolerate or establish sufficient oral or other enteral nutrition in outpatient setting [ ]b) Parenteral nutrition regimen need that must be implemented on inpatient basis [ ] XIX. Severe electrolyte abnormalities indicated by ALL of the following(68) (69)(70): [ ]a) Electrolytes and associated findings are not as expected for patient baseline or acceptable treatment effects. [ ]b) Severe abnormalities indicated by ANY ONE of the following: [ ]i) Sodium less than 130 mEq/L (mmol/L) (new) [ ]ii)Sodium less than 135 mEq/L (mmol/L) with ANY ONE of the following: [ ]1) Uncorrectable (to near normal or chronic baseline) after trial of outpatient and emergency treatment [ ]2) Altered mental status [ ]3) Seizures [ ]4) Severe medical etiology requiring inpatient management (eg, heart failure, hypovolemia) [ ]iii) Sodium greater than 155 mEq/L (mmol/L) [ ]iv) Sodium greater than 150 mEq/L (mmol/L) with ANY ONE of the following: [ ]1) Uncorrectable (to near normal or chronic baseline) with outpatient and emergency treatment [ ]2) Altered mental status [ ]3) Seizures [ ]4) Severe medical etiology (eg, hypovolemia, diabetes insipidus) [ ]v) Potassium less than 2.5 mEq/L (mmol/L) despite outpatient and emergency treatment [ ]vi) Potassium less than 3 mEq/L (mmol/L) with ANY ONE of the following: [ ]1) Weakness [ ]2) Cardiac abnormality (eg, arrhythmia, conduction disturbance) [ ]3) Cardiac ischemia [ ]4) Ileus [ ]5) Ongoing medical cause requiring inpatient management (eg, acute renal wasting or SIADH) [ ]6) Other severe symptoms [ ]vii) Potassium greater than 6.5 mEq/L (mmol/L) [ ]viii) Potassium greater than 5 mEq/L (mmol/L) with ANY ONE of the following: [ ]1) Uncorrectable (to near normal or chronic baseline) with outpatient and emergency treatment [ ]2) Severe ECG findings [F] [ ]3) Acute worsening of renal failure (creatinine greater than 2.5 mg/dL (221 micromoles/L) or significant elevation for age and size) [ ]4) Severe weakness [ ]5) Severe medical etiology (eg, hemolysis, infection, drug overdose) [ ]ix) Calcium less than 7 mg/dL (1.75 mmol/L) despite outpatient and emergency treatment (72) [ ]x) Calcium less than 8 mg/dL (2 mmol/L) with significant symptoms or findings; examples include(72): [ ]1) Altered mental status [ ]2) Muscle spasms [ ]3) Seizures [ ]4) Breathing difficulty [ ]5) Cardiac abnormality (eg, arrhythmia or conduction disturbance) [ ]xi) Calcium greater than 14 mg/dL (3.5 mmol/L)(72) [ ]xii) Calcium greater than 12 mg/dL (3 mmol/L) with ANY ONE of the following(72): [ ]1) Uncorrectable (to near normal or chronic baseline) with outpatient and emergency treatment [ ]2) Significant dehydration or hypovolemia as indicated by ALL of the following(70)(73)(74): [ ]A. Not resolved with initial treatments [ ]B. Clinically significant dehydration as indicated by ANY ONE of the following: [ ]a. Vomiting refractory to outpatient treatment (ie, precluding oral rehydration) [ ]b. Inability to drink [ ]c. Hypernatremia or other electrolyte abnormality unable to be corrected with outpatient and emergency treatment [ ]d. Failure to remain hydrated with outpatient therapy [ ]e. Reduced urine output [ ]f. Hypotension [ ]g. Serious cause for dehydration requiring acute hospitalization (eg, bowel obstruction, increased intracranial pressure, infectious cause) [ ]h. Child with ANY ONE of the following(75): [ ]1) Severe abdominal tenderness [ ]2) Adequate care not available at home [ ]3) Severe dehydration ( greater than 9% loss of body weight) [ ]4) Significant symptoms or findings; examples include: [ ]A. Altered mental status [ ]B. Cardiac abnormality (eg, arrhythmia, conduction disturbance) [ ]C. Malignant etiology requiring inpatient treatment [ ]xiii) Phosphorus less than 1 mg/dL (0.32 mmol/L) [ ]xiv) Phosphorus less than 1.5 mg/dL (0.48 mmol/L) with ANY ONE of the following: [ ]1) Patient unresponsive to outpatient and emergency treatment [ ]2) Significant symptoms or findings; examples include: [ ]A. Weakness [ ]B. Altered mental status [ ]C. Breathing difficulty [ ]D. Seizures [ ]E. Rhabdomyolysis [ ]xv) Phosphorus greater than 10 mg/dL (3.2 mmol/L) [ ]xvi) Phosphorus greater than 4.5 mg/dL (1.45 mmol/L) (new) with ANY ONE of the following: [ ]1) Severe medical etiology (eg, crush injury, acute renal failure) [ ]2) Associated hypocalcemia with significant findings; examples include: [ ]A. Neurologic symptoms [ ]B. Altered mental status [ ]C. Muscle spasms [ ]D. Seizures [ ]E. Breathing difficulty [ ]F. Cardiac abnormality (eg, arrhythmia, conduction disturbance) [ ]xvii) Magnesium less than 1 mg/dL (0.41 mmol/L) [ ]xviii) Magnesium less than 1.5 mg/dL (0.62 mmol/L) with ANY ONE of the following: [ ]1) Patient unresponsive to outpatient and emergency treatment [ ]2) Associated hypocalcemia with significant findings; examples include: [ ]A. Altered mental status [ ]B. Muscle spasms [ ]C. Seizures [ ]D. Breathing difficulty [ ]E. Cardiac abnormality (eg, arrhythmia , conduction disturbance) [ ]3) Associated hypokalemia (potassium less than 3 mEq/L (mmol/L)) with risk of arrhythmia [ ]xix) Magnesium greater than 4 mEq/L (2 mmol/L) [ ]xx) Magnesium greater than 2.5 mEq/L (1.25 mmol/L) with significant symptoms or findings; examples include: [ ]1) Weakness [ ]2) Altered mental status [ ]3) Cardiac abnormality (eg, arrhythmia, conduction disturbance) [ ]4) Breathing difficulty [ ]5) Severe medical etiology (eg, renal failure, hypovolemia) [ ]xxi) Uric acid greater than 20 mg/dL (1190 micromoles/L)(76) [ ]xxii) Uric acid greater than 8 mg/dL (476 micromoles/L) with significant symptoms or findings of tumor lysis syndrome; examples include(76): [ ]1) Creatinine greater than 1.5 times upper limit of normal [ ]2) Cardiac abnormality (eg, arrhythmia, conduction disturbance) [ ]3) Seizure [ ]XX. Acute blood loss causing significant abnormality as indicated by ANY ONE of the following(77)(78): [ ]a) Hemoglobin less than 10 g/dL (100 g/L) (not baseline) [ ]b) Hematocrit less than 30% (0.30) (not baseline) [ ]c) Repeat hematocrit decreased more than 2% (0.02) [ ]d) Uncontrolled bleeding [ ]XXI. Severe anemia indicated by ANY ONE of the following(78)(79): [ ]a) Altered mental status [ ]b) Chest pain [ ]c) Exertional dyspnea [ ]d) Syncope [ ]e) Other findings suggesting inadequate perfusion [ ]f) Treatment with transfusion or volume replacement is ineffective at resolving ANY ONE of the following [G]: [ ]i) Tachycardia for age [ ]ii) Orthostatic vital sign changes as indicated by ANY ONE of the following(80): [ ]1) Fall in SBP of 20 mm Hg or more 1 to 3 minutes after patient sits or stands from recumbent position [ ]2) Fall in DBP of 10 mm Hg or more 1 to 3 minutes after patient sits or stands from recumbent position [ ]XXII. High-risk low platelet count as indicated by ANY ONE of the following( 81)(82): [ ]a) Severe or life-threatening bleeding (eg, intracranial, major gastrointestinal, or extensive mucosal bleeding), with any reduced platelet count [ ]b) Platelet count less than 20,000/mm3 (20 x109/L) with any active bleeding [ ]c) Platelet count less than 10,000/mm3 (10 x109/L) with minor purpura or petechiae [ ]d) Platelet count less than 5000/mm3 (5 x109/L) [ ]e) Low platelet count with hemolytic anemia [ ]XXIII. Disseminated intravascular coagulation(77)(83) [ ]XXIV. Severe adverse drug or systemic toxin reaction requiring inpatient treatment; examples include(84)(85): [ ]a) Serotonin syndrome(86) [ ]b) Neuroleptic malignant syndrome(86) [ ]c) Cholinergic syndrome with severe symptoms (eg, bronchorrhea, weakness, mental status changes, seizures) [ ]d) Sympathetic syndrome with severe symptoms (eg, seizures, mental status changes, cardiac dysrhythmias) [ ]e) Anticholinergic syndrome [ ]XXV. Severe pain requiring acute inpatient management as indicated by ALL of the following (87)(88)(89): [ ]a) Continuous or frequent (eg, every 2 to 4 hours) parenteral analgesics required [H] [ ]b) Rapid improvement expected from treatment or acute intervention (eg, surgery, anesthesia procedure) [ ]XXVI.Severe behavioral health issues judged unmanageable at a lower level of care (eg, residential) in a patient who is ANY ONE of the following(91) [ ]a) Acutely suicidal [ ]b) A danger to self (eg, self-mutilating or suicidal behavior) [ ]c) A danger to others (eg, assaultive or homicidal behavior) [ ]d) Incapacitated because of grave disability (eg, inability to provide for self at lower level of care) (92) [ ]XXVII. Inpatient monitoring needed; examples include(1)(3)(87)(93)(94)(95)(96 ): [ ]a) Vital signs, neurologic signs, or vascular checks more frequently than every 4 hours [ ]b) Cardiac or respiratory monitoring beyond the scope (eg, over 24 hours) of observation care [ ]c) Pulmonary artery catheter monitoring [ ]d) Suspected compartment syndrome(97) (98) [ ]e) Cerebral bleeding, hydrocephalus, or vasospasm monitoring [ ]f) Increased intracranial pressure or cerebral edema monitoring [ ]g) monitoring [ ]XXVIII. Treatment requiring inpatient care; examples include: [ ]a) IV fluid to replace significant ongoing losses (greater than 3 L/m2 per day)(53) [ ]b) High concentration oxygen (greater than 40%)(33)(99)(100) [ ]c) Frequent respiratory therapy (more frequently than every 4 hours) to maintain airflow rates greater than 60% of baseline(33)(99)(100) [ ]d) Epidural analgesia(87) [ ]e) IV anticoagulation, vasoactive, or antiarrhythmic medication(19 )(23) [ ]f) Acute thrombolytics (generally require 24 hours of observation )(101)(102) [ ]XXIX. Emergency procedures needed; examples include: [ ]a) Emergency inpatient surgery [ ]b) Temporary pacemaker placement(103) [ ]c) Chest tube placement with active evacuation (eg, suction, drainage)(104) [ ]d) Emergent cardioversion(105) [ ]e) Emergent cardiac or vascular procedures (eg, cardiac catheterization, angioplasty) (17)(18) [ ]f) Emergent dialysis access placement and institution(10)(106) [ ]g) Emergent pericardiocentesis(107) [ ]h) Emergent plasmapheresis or leukapheresis(83) [ ]i) Emergent tracheostomy The original [employer] content created by [employer] has been revised. The portions of the content which have been revised are identified through the use of italic text or in bold, and [facility] has [facility] reviewed nor approved the modified material. All other unmodified content is copyright [employer]. Please see references footnoted in the original [employer] edition 2016 Admit Criteria Met?: Yes
[2017-02-26 05:13] LABS: % BASOPHILS 0.3 % (0.0-2.0); % EOSINOPHILS 0.1 % (0.0-5.0); % LYMPHOCYTES 20.3 % (20.0-50.0); % MONOCYTES 8.4 % (2.0-10.0); % NEUTROPHILS 70.9 % (40.0-80.0); HEMATOCRIT 37.9 % (39.0-49.0); HEMOGLOBIN 12.7 gm/dL (13.2-17.3); MEAN CORPUSCULAR HEMOGLOBIN 29.6 pg (26.0-30.0); MEAN CORPUSCULAR HGB CONC 33.6 pg (28.0-36.0); MEAN PLATELET VOLUME 8.7 fl; NEUTROPHILE ABSOLUTE 7.7 Th/cmm (1.8-8.0); PLATELET COUNT 234 Th/cmm (150-400); RED CELL DISTRIBUTION WIDTH 12.3 % (11.5-20.0); WHITE BLOOD COUNT 10.8 Th/cmm (4.8-10.8)
[2017-02-26] MEDS: INSULIN ASPART SLIDING SCALE 100 UNITS/ML UNIT SUBQ SCH ×3 (06:03→12:14)
[2017-02-26 06:18] LABS: ALKALINE PHOSPHATASE 106 U/L (34-104); AMYLASE SERUM 34 U/L (29-103); ANION GAP 18.9 (7.0-16.0); BILIRUBIN,TOTAL 1.2 mg/dL (0.3-1.0); BUN - UREA NITROGEN 15 mg/dL (7-25); CALCIUM SERUM 8.8 mg/dL (8.6-10.3); CARBON DIOXIDE 12.3 mEq/L (21.0-31.0); CHLORIDE 106 mEq/L (98-107); GLUCOSE 220 mg/dL (70-105); POTASSIUM SERUM 4.2 mEq/L (3.5-5.1); SGOT 23 U/L (13-39); SGPT/ALT 26 U/L (7-52); SODIUM SERUM 133 mEq/L (136-145)
--- NOTE | 2017-02-26 09:17 | Discharge Summary ---
General Discharge Summary - Discharge Summary Date of Admission: 02/23/17 Admitting Diagnosis: DKA, Pancreatitis, Elevated WBC Discharge Date: 02/26/17 Discharge Diagnosis: DKA, Pancreatitis, Elevated WBC Laboratory Findings: Laboratory Tests 02/23/17 02/23/17 02/23/17 16:10 16:16 16:16 WBC 38.0 H* RBC 5.63 Hgb 16.4 Hct 49.4 H MCV 87.7 MCH 29.1 MCHC Differential 33.1 RDW 12.5 Plt Count 375 MPV 9.1 Neutrophils % Band Neutrophils % 10 Lymphocytes % Monocytes % Eosinophils % Basophils % Neutrophils (Manual) 80 Lymphocytes 4 L Monocytes 6 Eosinophils 0 Basophils 0 Platelet Estimate ADEQUATE Platelet Morphology NORMAL RBC Morph Micro Appear NORMAL Sodium 142 Potassium 4.9 Chloride 111 H Carbon Dioxide 21.7 Anion Gap 14.2 BUN 35 H Creatinine 1.8 H Est GFR ( Amer) 58.5 Est GFR (Non-Af Amer) 48.3 BUN/Creatinine Ratio 19.4 Glucose 330 H POC Glucose 307 H Hemoglobin A1c % Whole Bld Lactic Acid Calcium 9.8 Total Bilirubin 0.8 AST 32 ALT 21 Alkaline Phosphatase 137 H Total Protein 7.2 Albumin 3.9 L Globulin 3.3 Albumin/Globulin Ratio 1.2 Amylase Lipase Urine Source Urine Color Urine Clarity Urine pH Ur Specific [place] Urine Protein Urine Glucose (UA) Urine Ketones Urine Blood Urine Nitrate Urine Bilirubin Urine Urobilinogen Ur Leukocyte Esterase Urine RBC Urine WBC Ur Epithelial Cells Urine Bacteria 02/23/17 02/23/17 02/23/17 16:16 16:16 16:16 WBC RBC Hgb Hct MCV MCH MCHC Differential RDW Plt Count MPV Neutrophils % Band Neutrophils % Lymphocytes % Monocytes % Eosinophils % Basophils % Neutrophils (Manual) Lymphocytes Monocytes Eosinophils Basophils Platelet Estimate Platelet Morphology RBC Morph Micro Appear Sodium Potassium Chloride Carbon Dioxide Anion Gap BUN Creatinine Est GFR ( Amer) Est GFR (Non-Af Amer) BUN/Creatinine Ratio Glucose POC Glucose Hemoglobin A1c % 13.5 H Whole Bld Lactic Acid 1.80 Calcium Total Bilirubin AST ALT Alkaline Phosphatase Total Protein Albumin Globulin Albumin/Globulin Ratio Amylase 174 H Lipase 192 H Urine Source Urine Color Urine Clarity Urine pH Ur Specific [place] Urine Protein Urine Glucose (UA) Urine Ketones Urine Blood Urine Nitrate Urine Bilirubin Urine Urobilinogen Ur Leukocyte Esterase Urine RBC Urine WBC Ur Epithelial Cells Urine Bacteria 02/23/17 02/23/17 02/23/17 17:08 18:19 18:45 WBC RBC Hgb Hct MCV MCH MCHC Differential RDW Plt Count MPV Neutrophils % Band Neutrophils % Lymphocytes % Monocytes % Eosinophils % Basophils % Neutrophils (Manual) Lymphocytes Monocytes Eosinophils Basophils Platelet Estimate Platelet Morphology RBC Morph Micro Appear Sodium Potassium Chloride Carbon Dioxide Anion Gap BUN Creatinine Est GFR ( Amer) Est GFR (Non-Af Amer) BUN/Creatinine Ratio Glucose POC Glucose 317 H 342 H Hemoglobin A1c % Whole Bld Lactic Acid Calcium Total Bilirubin AST ALT Alkaline Phosphatase Total Protein Albumin Globulin Albumin/Globulin Ratio Amylase Lipase Urine Source RANDOM Urine Color YELLOW Urine Clarity CLEAR Urine pH 5.5 Ur Specific [place] >= 1.030 Urine Protein TRACE Urine Glucose (UA) >=1000 H Urine Ketones 40 H Urine Blood SMALL H Urine Nitrate NEGATIVE Urine Bilirubin SMALL H Urine Urobilinogen 0.2 Ur Leukocyte Esterase NEGATIVE Urine RBC 2-5 H Urine WBC NONE SEEN Ur Epithelial Cells NONE SEEN Urine Bacteria NONE SEEN 02/23/17 02/23/17 02/23/17 19:18 20:20 20:32 WBC RBC Hgb Hct MCV MCH MCHC Differential RDW Plt Count MPV Neutrophils % Band Neutrophils % Lymphocytes % Monocytes % Eosinophils % Basophils % Neutrophils (Manual) Lymphocytes Monocytes Eosinophils Basophils Platelet Estimate Platelet Morphology RBC Morph Micro Appear Sodium Potassium 4.1 Chloride Carbon Dioxide Anion Gap BUN Creatinine Est GFR ( Amer) Est GFR (Non-Af Amer) BUN/Creatinine Ratio Glucose POC Glucose 342 H 285 H Hemoglobin A1c % Whole Bld Lactic Acid Calcium Total Bilirubin AST ALT Alkaline Phosphatase Total Protein Albumin Globulin Albumin/Globulin Ratio Amylase Lipase Urine Source Urine Color Urine Clarity Urine pH Ur Specific [place] Urine Protein Urine Glucose (UA) Urine Ketones Urine Blood Urine Nitrate Urine Bilirubin Urine Urobilinogen Ur Leukocyte Esterase Urine RBC Urine WBC Ur Epithelial Cells Urine Bacteria 02/23/17 02/23/17 02/23/17 21:26 22:28 23:35 WBC RBC Hgb Hct MCV MCH MCHC Differential RDW Plt Count MPV Neutrophils % Band Neutrophils % Lymphocytes % Monocytes % Eosinophils % Basophils % Neutrophils (Manual) Lymphocytes Monocytes Eosinophils Basophils Platelet Estimate Platelet Morphology RBC Morph Micro Appear Sodium Potassium Chloride Carbon Dioxide Anion Gap BUN Creatinine Est GFR ( Amer) Est GFR (Non-Af Amer) BUN/Creatinine Ratio Glucose POC Glucose 265 H 260 H 243 H Hemoglobin A1c % Whole Bld Lactic Acid Calcium Total Bilirubin AST ALT Alkaline Phosphatase Total Protein Albumin Globulin Albumin/Globulin Ratio Amylase Lipase Urine Source Urine Color Urine Clarity Urine pH Ur Specific [place] Urine Protein Urine Glucose (UA) Urine Ketones Urine Blood Urine Nitrate Urine Bilirubin Urine Urobilinogen Ur Leukocyte Esterase Urine RBC Urine WBC Ur Epithelial Cells Urine Bacteria 02/24/17 02/24/17 02/24/17 00:20 00:25 01:29 WBC RBC Hgb Hct MCV MCH MCHC Differential RDW Plt Count MPV Neutrophils % Band Neutrophils % Lymphocytes % Monocytes % Eosinophils % Basophils % Neutrophils (Manual) Lymphocytes Monocytes Eosinophils Basophils Platelet Estimate Platelet Morphology RBC Morph Micro Appear Sodium Potassium 4.1 Chloride Carbon Dioxide Anion Gap BUN Creatinine Est GFR ( Amer) Est GFR (Non-Af Amer) BUN/Creatinine Ratio Glucose POC Glucose 243 H 235 H Hemoglobin A1c % Whole Bld Lactic Acid Calcium Total Bilirubin AST ALT Alkaline Phosphatase Total Protein Albumin Globulin Albumin/Globulin Ratio Amylase Lipase Urine Source Urine Color Urine Clarity Urine pH Ur Specific [place] Urine Protein Urine Glucose (UA) Urine Ketones Urine Blood Urine Nitrate Urine Bilirubin Urine Urobilinogen Ur Leukocyte Esterase Urine RBC Urine WBC Ur Epithelial Cells Urine Bacteria 02/24/17 02/24/17 02/24/17 02:30 03:32 04:05 WBC RBC Hgb Hct MCV MCH MCHC Differential RDW Plt Count MPV Neutrophils % Band Neutrophils % Lymphocytes % Monocytes % Eosinophils % Basophils % Neutrophils (Manual) Lymphocytes Monocytes Eosinophils Basophils Platelet Estimate Platelet Morphology RBC Morph Micro Appear Sodium Potassium 4.1 Chloride Carbon Dioxide Anion Gap BUN Creatinine Est GFR ( Amer) Est GFR (Non-Af Amer) BUN/Creatinine Ratio Glucose POC Glucose 232 H 208 H Hemoglobin A1c % Whole Bld Lactic Acid Calcium Total Bilirubin AST ALT Alkaline Phosphatase Total Protein Albumin Globulin Albumin/Globulin Ratio Amylase Lipase Urine Source Urine Color Urine Clarity Urine pH Ur Specific [place] Urine Protein Urine Glucose (UA) Urine Ketones Urine Blood Urine Nitrate Urine Bilirubin Urine Urobilinogen Ur Leukocyte Esterase Urine RBC Urine WBC Ur Epithelial Cells Urine Bacteria 02/24/17 02/24/17 02/24/17 04:16 05:28 06:27 WBC RBC Hgb Hct MCV MCH MCHC Differential RDW Plt Count MPV Neutrophils % Band Neutrophils % Lymphocytes % Monocytes % Eosinophils % Basophils % Neutrophils (Manual) Lymphocytes Monocytes Eosinophils Basophils Platelet Estimate Platelet Morphology RBC Morph Micro Appear Sodium Potassium Chloride Carbon Dioxide Anion Gap BUN Creatinine Est GFR ( Amer) Est GFR (Non-Af Amer) BUN/Creatinine Ratio Glucose POC Glucose 227 H 224 H 210 H Hemoglobin A1c % Whole Bld Lactic Acid Calcium Total Bilirubin AST ALT Alkaline Phosphatase Total Protein Albumin Globulin Albumin/Globulin Ratio Amylase Lipase Urine Source Urine Color Urine Clarity Urine pH Ur Specific [place] Urine Protein Urine Glucose (UA) Urine Ketones Urine Blood Urine Nitrate Urine Bilirubin Urine Urobilinogen Ur Leukocyte Esterase Urine RBC Urine WBC Ur Epithelial Cells Urine Bacteria 02/24/17 02/24/17 02/24/17 07:30 07:55 07:55 WBC 25.4 H* D RBC 4.74 Hgb 14.0 D Hct 41.3 D MCV 87.1 MCH 29.6 MCHC Differential 34.0 RDW 12.6 Plt Count 274 D MPV 8.7 Neutrophils % Band Neutrophils % 3 Lymphocytes % Monocytes % Eosinophils % Basophils % Neutrophils (Manual) 89 H Lymphocytes 5 L Monocytes 3 Eosinophils Basophils Platelet Estimate Platelet Morphology RBC Morph Micro Appear Sodium 138 Potassium 4.0 Chloride 109 H Carbon Dioxide 22.2 Anion Gap 10.8 BUN 21 Creatinine 1.0 Est GFR ( Amer) > 60.0 Est GFR (Non-Af Amer) > 60.0 BUN/Creatinine Ratio 21.0 Glucose 232 H POC Glucose 202 H Hemoglobin A1c % Whole Bld Lactic Acid Calcium 9.1 Total Bilirubin 0.9 AST 45 H ALT 20 Alkaline Phosphatase 106 H Total Protein 6.1 Albumin 3.3 L Globulin 2.8 Albumin/Globulin Ratio 1.2 Amylase Lipase Urine Source Urine Color Urine Clarity Urine pH Ur Specific [place] Urine Protein Urine Glucose (UA) Urine Ketones Urine Blood Urine Nitrate Urine Bilirubin Urine Urobilinogen Ur Leukocyte Esterase Urine RBC Urine WBC Ur Epithelial Cells Urine Bacteria 02/24/17 02/24/17 02/24/17 10:01 12:00 12:03 WBC RBC Hgb Hct MCV MCH MCHC Differential RDW Plt Count MPV Neutrophils % Band Neutrophils % Lymphocytes % Monocytes % Eosinophils % Basophils % Neutrophils (Manual) Lymphocytes Monocytes Eosinophils Basophils Platelet Estimate Platelet Morphology RBC Morph Micro Appear Sodium Potassium 4.3 Chloride Carbon Dioxide Anion Gap BUN Creatinine Est GFR ( Amer) Est GFR (Non-Af Amer) BUN/Creatinine Ratio Glucose POC Glucose 212 H 310 H Hemoglobin A1c % Whole Bld Lactic Acid Calcium Total Bilirubin AST ALT Alkaline Phosphatase Total Protein Albumin Globulin Albumin/Globulin Ratio Amylase Lipase Urine Source Urine Color Urine Clarity Urine pH Ur Specific [place] Urine Protein Urine Glucose (UA) Urine Ketones Urine Blood Urine Nitrate Urine Bilirubin Urine Urobilinogen Ur Leukocyte Esterase Urine RBC Urine WBC Ur Epithelial Cells Urine Bacteria 02/24/17 02/24/17 02/25/17 17:48 23:58 04:34 WBC 12.1 H D RBC 3.98 L Hgb 11.8 L D Hct 34.9 L D MCV 87.5 MCH 29.3 MCHC Differential 33.5 RDW 12.3 Plt Count 213 D MPV 8.8 Neutrophils % 77.1 Band Neutrophils % 1 Lymphocytes % 13.1 L Monocytes % 9.4 Eosinophils % 0.2 Basophils % 0.2 Neutrophils (Manual) 77 Lymphocytes 13 L Monocytes 9 Eosinophils Basophils Platelet Estimate Platelet Morphology RBC Morph Micro Appear Sodium Potassium Chloride Carbon Dioxide Anion Gap BUN Creatinine Est GFR ( Amer) Est GFR (Non-Af Amer) BUN/Creatinine Ratio Glucose POC Glucose 291 H 281 H Hemoglobin A1c % Whole Bld Lactic Acid Calcium Total Bilirubin AST ALT Alkaline Phosphatase Total Protein Albumin Globulin Albumin/Globulin Ratio Amylase Lipase Urine Source Urine Color Urine Clarity Urine pH Ur Specific [place] Urine Protein Urine Glucose (UA) Urine Ketones Urine Blood Urine Nitrate Urine Bilirubin Urine Urobilinogen Ur Leukocyte Esterase Urine RBC Urine WBC Ur Epithelial Cells Urine Bacteria 02/25/17 02/25/17 02/25/17 04:34 06:11 12:04 WBC RBC Hgb Hct MCV MCH MCHC Differential RDW Plt Count MPV Neutrophils % Band Neutrophils % Lymphocytes % Monocytes % Eosinophils % Basophils % Neutrophils (Manual) Lymphocytes Monocytes Eosinophils Basophils Platelet Estimate Platelet Morphology RBC Morph Micro Appear Sodium 135 L Potassium 3.8 Chloride 103 Carbon Dioxide 20.7 L Anion Gap 15.1 BUN 14 Creatinine 0.8 Est GFR ( Amer) > 60.0 Est GFR (Non-Af Amer) > 60.0 BUN/Creatinine Ratio 17.5 Glucose 236 H POC Glucose 244 H 302 H Hemoglobin A1c % Whole Bld Lactic Acid Calcium 8.8 Total Bilirubin 1.6 H AST 37 ALT 23 Alkaline Phosphatase 95 Total Protein 5.7 L Albumin 3.1 L Globulin 2.6 Albumin/Globulin Ratio 1.2 Amylase 91 Lipase 56 Urine Source Urine Color Urine Clarity Urine pH Ur Specific [place] Urine Protein Urine Glucose (UA) Urine Ketones Urine Blood Urine Nitrate Urine Bilirubin Urine Urobilinogen Ur Leukocyte Esterase Urine RBC Urine WBC Ur Epithelial Cells Urine Bacteria 02/25/17 02/26/17 02/26/17 17:25 00:11 04:40 WBC 10.8 RBC 4.30 Hgb 12.7 L Hct 37.9 L MCV 88.0 MCH 29.6 MCHC Differential 33.6 RDW 12.3 Plt Count 234 MPV 8.7 Neutrophils % 70.9 Band Neutrophils % Lymphocytes % 20.3 Monocytes % 8.4 Eosinophils % 0.1 Basophils % 0.3 Neutrophils (Manual) Lymphocytes Monocytes Eosinophils Basophils Platelet Estimate Platelet Morphology RBC Morph Micro Appear Sodium Potassium Chloride Carbon Dioxide Anion Gap BUN Creatinine Est GFR ( Amer) Est GFR (Non-Af Amer) BUN/Creatinine Ratio Glucose POC Glucose 294 H 331 H Hemoglobin A1c % Whole Bld Lactic Acid Calcium Total Bilirubin AST ALT Alkaline Phosphatase Total Protein Albumin Globulin Albumin/Globulin Ratio Amylase Lipase Urine Source Urine Color Urine Clarity Urine pH Ur Specific [place] Urine Protein Urine Glucose (UA) Urine Ketones Urine Blood Urine Nitrate Urine Bilirubin Urine Urobilinogen Ur Leukocyte Esterase Urine RBC Urine WBC Ur Epithelial Cells Urine Bacteria 02/26/17 02/26/17 04:40 05:53 WBC RBC Hgb Hct MCV MCH MCHC Differential RDW Plt Count MPV Neutrophils % Band Neutrophils % Lymphocytes % Monocytes % Eosinophils % Basophils % Neutrophils (Manual) Lymphocytes Monocytes Eosinophils Basophils Platelet Estimate Platelet Morphology RBC Morph Micro Appear Sodium 133 L Potassium 4.2 Chloride 106 Carbon Dioxide 12.3 L Anion Gap 18.9 H BUN 15 Creatinine 1.0 Est GFR ( Amer) > 60.0 Est GFR (Non-Af Amer) > 60.0 BUN/Creatinine Ratio 15.0 Glucose 220 H POC Glucose 237 H Hemoglobin A1c % Whole Bld Lactic Acid Calcium 8.8 Total Bilirubin 1.2 H AST 23 ALT 26 Alkaline Phosphatase 106 H Total Protein 6.7 Albumin 3.4 L Globulin 3.3 Albumin/Globulin Ratio 1.0 Amylase 34 Lipase Urine Source Urine Color Urine Clarity Urine pH Ur Specific [place] Urine Protein Urine Glucose (UA) Urine Ketones Urine Blood Urine Nitrate Urine Bilirubin Urine Urobilinogen Ur Leukocyte Esterase Urine RBC Urine WBC Ur Epithelial Cells Urine Bacteria Hospital Course: Patient was admitted to ICU he was started in Insulin drip, later changed to sliding scale, IV NS, NPO, Sozyn, Consult with GI was done and recommendations were follow. Treatment: Insulin drip, sliding scale, IV NS, Sozyn, NPO Condition at Discharge: Stable Disposition: PT DISCHARGED HOME Home Medications: Home Medication Medication Instructions Recorded Type Insulin Human Isophane (NPH) 10 units SUBQ Q12HR 02/23/17 History [NovoLIN N] Insulin Human Regular [NovoLIN R*] 10 units SUBQ TIDWM 02/23/17 History Inpatient Medications: Current Medications Heparin Sodium (Porcine) (Heparin) 5,000 units SUBQ Q12HR [facility] Stop: 04/24/17 20:59 Last Admin: 02/25/17 20:45 Dose: 5,000 units Sodium Chloride (Nacl 0.9%) 1,000 mls @ 125 mls/hr IV .Q8H [facility] Stop: 04/24/17 16:04 Last Admin: 02/26/17 02:57 Dose: 125 mls/hr Piperacillin Sod/Tazobactam (Sod 3.375 gm/ Sodium Chloride) 50 mls @ 100 mls/ hr IV Q8H [facility] Stop: 04/24/17 17:59 Last Infusion: 02/26/17 02:15 Dose: Infused Potassium Chloride 40 meq/Lidocaine HCl 25 mg/ Sodium Chloride 272.5 mls @ 68 mls/hr IV DAILY PRN PRN Reason: K+ LEVEL LESS THAN 4 Stop: 04/24/17 20:14 Insulin Aspart (Novolog Insulin Sliding Scale) 0 units SUBQ Q6HR NYA PRN Reason: Protocol Stop: 04/25/17 08:59 Last Admin: 02/26/17 06:03 Dose: 6 units Miscellaneous (Vte Chemical Prophylaxis Screen/ Admission) 1 ea PRN PRN PRN Reason: PROTOCOL Stop: 04/24/17 17:13 Pantoprazole Sodium (Protonix) 20 mg IVP DAILY [facility] Stop: 04/24/17 20:44 Last Admin: 02/25/17 11:00 Dose: 20 mg Activity: As Tolerated Consulting Speciality: Other (Endocrinology and PCP)
== END 2017-02-26 12:50 | disposition home or self-care (01) | DRG 637 ==
LOC: ICU 15:40
PROVIDERS: ADMIT General Practice; ATTEND General Practice
DX: E13.10 Other specified diabetes mellitus with ketoacidosis without coma (principal); K85.90 Acute pancreatitis without necrosis or infection, unspecified; Z83.3 Family history of diabetes mellitus; Z82.49 Family history of ischemic heart disease and other diseases of the circulatory system
CPT/HCPCS: 36415-UA; 71010-TC; 80053-TC; 81001-TC; 82150-TC; 82948-90; 83036-90; 83605; 83690-TC; 84132-TC; 85007-TC; 85025-TC; 85027-TC; 93005; C9113; J1644; J1815; J2001; J2543; J3480; J7030